=== PATIENT | male | born 1985 | race Caucasian/White ===

== ENCOUNTER 2016-02-23 13:08 | Inpatient (IN) | payer OTHER ==
[2016-02-23 14:09] LABS: Urine Bilirubin Negative (Negative); Urine Glucose Negative (Negative); Urine Nitrite Negative (Negative)
[2016-02-23] MEDS ORDERED: Haloperidol TAB* 10 MG PO ONE (14:12)
[2016-02-23] MEDS ORDERED: Al Hydrox/Mg Hydrox/Simet LIQ* 30 ML UDC PO ONE (14:12)
[2016-02-23 14:18] LABS: Benzodiazepine Urine Screen Presumptive Positive (None Detect)
[2016-02-23] MEDS ORDERED: Haloperidol TAB* 5 MG ONE (14:18)
[2016-02-23 16:16] LABS: Comments Flag Yes; Hematocrit 43 % (42-52); Hemoglobin 14.5 g/dl (14.0-18.0); Mean Corpuscular HGB Conc 34 g/dl (31-36); Mean Corpuscular Hemoglobin 29 pg (27-31); Mean Corpuscular Volume 84 fL (80-94); Mean Platelet Volume 8 um3 (7.4-10.4); Red Blood Count 5.06 10^6/ul (4.0-5.4); Red Cell Distribution Width 13 % (10.5-15); White Blood Count 7.2 10^3/ul (3.5-10.8)
[2016-02-23 16:17] LABS: Add Diff/Slide Review? Slide Review Added
[2016-02-23 16:26] LABS: ALT 33 U/L (7-52); AST 21 U/L (13-39); Albumin 4.5 g/dL (3.2-5.2); Alkaline Phosphatase 60 U/L (34-104); Anion Gap 9 mmol/L (2-11); Blood Urea Nitrogen 9 mg/dL (6-24); CO2 Carbon Dioxide 23 mmol/L (22-32); Calcium 9.4 mg/dL (8.6-10.3); Chloride 105 mmol/L (101-111); EGFR African American 111.4 (>60); EGFR Non-African American 86.6 (>60); Globulin 2.7 g/dL (2-4); Glucose 136 mg/dL (70-100); Potassium 3.4 mmol/L (3.5-5.0); Sodium 137 mmol/L (133-145); Total Protein 7.2 g/dL (6.4-8.9)
[2016-02-23 17:19] LABS: Acetaminophen < 15 mcg/mL; Alcohol < 10 mg/dL (<10); Salicylate < 2.50 mg/dL (<30)
[2016-02-23 17:29] LABS: TSH (Thyroid Stimulating Horm) 1.99 mcIU/mL (0.34-5.60)
[2016-02-23] MEDS ORDERED: diPHENhydraMINE IV* 50 MG in NS 0.9% 50 ML* 50 ML IM ONE (17:49)
[2016-02-23] MEDS ORDERED: Haloperidol INJ IV/IM* 5 MG/ML AMP IM ONE (17:49)
[2016-02-23] MEDS ORDERED: LORazepam INJ* 2 MG/ML 1 ML VIAL IM ONE (17:49)
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
[2016-02-24] MEDS ORDERED: Nicotine Inhaler* 10 MG AMP ONE (01:27)
[2016-02-24] MEDS ORDERED: Mouth Piece, Nicotine* 1 EACH CARTRIDGE ONE ×2 (01:27→11:28)
[2016-02-24] MEDS ORDERED: Nicotine GUM* 2 MG ONE (02:53)
[2016-02-24] MEDS ORDERED: LORazepam TAB(*) 1 MG ONE (04:00)
[2016-02-24] MEDS ORDERED: Haloperidol TAB* 5 MG ONE (04:00)
[2016-02-24] MEDS ORDERED: Nicotine Inhaler* 10 MG AMP INH PRN (04:11)
[2016-02-24] MEDS ORDERED: LORazepam TAB(*) 1 MG PO PRN (04:13)
[2016-02-24] MEDS ORDERED: Haloperidol TAB* 5 MG PO PRN (04:14)
[2016-02-24] MEDS ORDERED: Mouth Piece, Nicotine* 1 EACH CARTRIDGE INH ONE (05:00)
[2016-02-24] MEDS: Vitamin THERAPEUTIC TAB PO SCH (09:22)
[2016-02-24] MEDS: Nicotine GUM* 2 MG PO PRN ×2 (10:07→19:44)
[2016-02-24] MEDS ORDERED: diPHENhydraMINE IV* 50 MG/ML 1 ml VIAL (BENADRYL) ONE (11:08)
[2016-02-24] MEDS ORDERED: diPHENhydraMINE PO* 50 MG PO ONE (19:15)
[2016-02-24] MEDS ORDERED: diPHENhydraMINE PO* 50 MG ONE (19:19)
[2016-02-24] MEDS ORDERED: OLANzapine TAB* 5 MG PO SCH (21:00)
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
[2016-02-25] MEDS: Acetaminophen TAB* 325 MG PO PRN (06:48)
[2016-02-25] MEDS: Vitamin THERAPEUTIC TAB PO SCH (08:53)
[2016-02-25] MEDS: Nicotine GUM* 2 MG PO PRN (09:14)
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
[2016-02-25] MEDS: Paliperidone TAB* 6 MG PO SCH (20:37)
[2016-02-26] MEDS: Acetaminophen TAB* 325 MG PO PRN ×2 (01:08→08:01)
[2016-02-26] MEDS: Nicotine GUM* 2 MG PO PRN (01:39)
[2016-02-26] MEDS: Vitamin THERAPEUTIC TAB PO SCH (08:01)
--- NOTE | 2016-02-26 11:41 | PN ---
[facility]HU: Group Therapy Note - Service Type Service Type: 70744 Group Psychotherapy - Cognitive Behavioral Group Therapy ( CBT):Patient presented in CBT programming as disorganized and disruptive in discussion and needed repeated redirection to attend to presented materials.
--- NOTE | 2016-02-26 15:36 | PN ---
Subjective - Subjective Service Type: 86876 Hosp care 25 min moderate complexity Subjective: The patient continues to be hyperverbal and intrusive at times, wanting to discuss other patients' treatment and telling me that he still intends to pursue an [employer] basketball career in the future despite the fact that he is short and obese. He is tolerating the initiation of paliperidone well and did appear to sleep better last night. The patient continues to complain of periumbilical abdominal pain and reports that he was scheduled to have a hernia surgery this week at the [facility] in [place]. Objective - Appearance Appearance: Obese Dysmorphic Features: No Hygiene: Normal Grooming: Well Kept - Behavior Psychomotor Activities: Abnormal-Increased Exhibits Abnormal Movement: No - Attitude and Relatedness Attitude and Relatedness: Psychotically Related Eye Contact: Good - Speech Quality: Pressured Latencies: Short Quantity: Copious - Mood Patient's Decription of Mood: "Great" - Affect Observed Affect: Expansive Affect Consistent with: Euphoria - Thought Process Patient's Thought Process: Tangential Thought Content: Yes Paranoid Ideation, No Passive Wish, No Suicidal Planning, No Homicidal Ideation - Sensorium Experiencing Hallucinations: No, Sensorium is Clear Type of Hallucinations: Visual: No, Auditory: No, Command: No - Level of Consciousness Level of Consciousness: Alert Orientation: Yes Intact, Yes Orientated to Time, Yes Orientated to Place, Yes Orientated to Person - Impulse Control Impulse Control: Impaired - Insight and Judgement Insight and Judgement: Poor - Group Participation Particating in Group Activities: Yes - Medication Management Medication Management Adherence: Yes Assessment - Assessment Merits Inpatient Hospitalization: For Immediate Safety, For Stabilization Inpatient DSM-IV Dx: Unspecified Psychotic DO Clinical Impression: 30 y.o. white male with a history of at least one prior psychotic break who was brought in to the hospital by the police due to paranoid, delusional and dangerous behavior in the community. He continues to present as manic and psychotic. Plan - Plan Treatment Plan: Name: IGNACIO POLANCO Birthdate: 1985 [id number] Continue paliperidone 6mg PO qhs. May opt for injectable Invega if patient consents. Await med effect. Also, we have consulted Surgery Department (Dr. Schwartz) who will evaluate the patient's abdominal complaints. Continued Medication Management: Start Medication Medications: Current Medications Acetaminophen (Tylenol Tab*) 650 mg PO Q4H PRN PRN Reason: PAIN or TEMP > 101 F Last Admin: 02/26/16 08:01 Dose: 650 mg Al Hydrox/Mg Hydrox/Simethicone (Maalox Plus*) 30 ml PO Q4H PRN PRN Reason: INDIGESTION Lorazepam (Ativan Tab(*)) 2 mg PO Q6H PRN PRN Reason: ANXIETY/AGITATION Multivitamins (Theragran Tab*) 1 tab PO DAILY [facility] Last Admin: 02/26/16 08:01 Dose: 1 tab Nicotine (Nicotine Inhaler*) 10 mg INH Q2H PRN PRN Reason: CRAVING Last Admin: 02/24/16 11:28 Dose: 10 mg Nicotine Polacrilex (Nicotine Gum*) 2 mg PO Q2H PRN PRN Reason: CRAVING Last Admin: 02/26/16 01:39 Dose: 2 mg Paliperidone (Invega Tab*) 6 mg PO BEDTIME [facility] Last Admin: 02/25/16 20:37 Dose: 6 mg - Discharge Plan Discharge Plan: Inpatient Hospitalization
[2016-02-26] MEDS: Paliperidone TAB* 6 MG PO SCH (20:21)
--- NOTE | 2016-02-26 22:43 | CONS ---
CONSULTATION REPORT: DATE OF CONSULT: 02/26/16 PROVIDER: SANDRA Camacho ATTENDING PHYSICIAN: Kem Schwartz MD REASON FOR CONSULTATION: Hernia to abdominal wall. HISTORY OF PRESENT ILLNESS: The patient is a 30-year-old male who is admitted to the Behavioral Services Unit for psychosis with paranoia. He tells me that he needs his hernia fixed because he is about to be drafted into the [employer]. 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 He otherwise has no associated discomfort or change in bowel or appetite. He recently ate dinner and had a good hearty meal. PAST MEDICAL HISTORY: Surgery for carpal tunnel, possible schizophrenia, a small hiatal hernia, and small fat-containing umbilical hernia just superior to the right of the umbilicus. PHYSICAL EXAMINATION: The patient is a generally well-appearing, somewhat overweight male, who appears his stated age, who is conversing normally. Vital Signs: Vitals from 02/25/16 - temperature 98.1, pulse 91, respiratory rate 16, O2 sat 99% on room air, and blood pressure 121/84. Abdomen: Soft, obese, non-distended. +BS throughout. Difficult to palpate small 3cm umbilical hernia to superior-right of umbilicus (10 O'clock). Appears to reduce when pt relaxes abdomen. Non-tender to palpation. No erythema or skin rashes/lesions. No masses or organomegaly but exam is somewhat limited due to body habitus. DIAGNOSTIC STUDIES/LAB DATA: Abdomen and pelvis CT scan findings as described in past medical history regarding small hiatal hernia and small fat-containing umbilical hernia, which was taken on 02/21/16 for abdominal pain. ASSESSMENT AND PLAN: The patient is a 30-year-old male who presents with periumbilical discomfort associated with lifting his hands about his head and bending over related to a fat-containing periumbilical hernia. We would recommend he have this repaired at some point in the future upon discharge. There is no evidence to suggest incarceration or strangulation. There is no bowel obstruction. This does not require urgent surgical intervention. I discussed with him the need for outpatient followup as supposed to going to the emergency room to address this problem. The patient can be referred to our Surgical Office or to somewhere closer to his house such as [facility] for repair of this periumbilical hernia. SANDRA CAMACHO CC: Bandar Del Castillo MD, psychiatrist; Dr. [facility] at [facility] [id number]/[facility] #: [id number] [facility]
[2016-02-27] MEDS: Vitamin THERAPEUTIC TAB PO SCH (08:50)
--- NOTE | 2016-02-27 11:20 | PN ---
MHU: Group Therapy Note - Service Type Service Type: 48623 Group Psychotherapy - Cognitive Behavioral Therapy (CBT): Kem remains extremely hyper verbal despite repeated attempts to re-direct. He repeated how "I'm an alpha male" and maintains that he will play in the [employer], despite not having played competitive basketball even in high school. He also continues to describe his interest in utilizing medical marijuana, and plans to quit his job because he "I've saved up $2,000" He presently is unable to accept efforts to engage in substantive clinical discussion, and remains a very disruptive influence on group dynamics.
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
[2016-02-27] MEDS: Paliperidone TAB* 9 MG PO SCH (20:09)
[2016-02-28] MEDS: Vitamin THERAPEUTIC TAB PO SCH (07:23)
[2016-02-28] MEDS: Acetaminophen TAB* 325 MG PO PRN ×2 (07:23→22:57)
[2016-02-28] MEDS ORDERED: Paliperidone SUSTENNA* 234 MG/1.5 ML IM ONE (14:53)
--- NOTE | 2016-02-28 14:59 | PN ---
Subjective - Subjective Service Type: 20314 Hosp care 25 min moderate complexity Subjective: Patient remains grandiose and still threatening towards a particular female staff. "I own this town. I could have her lumped the fuck up if I wanted to. It could have happened yesterday while she was walking out of the parking lot to her car. I wanna be in the [employer], I gotta be the [employer]!" Patient tolerating the oral paliperidone well and agrees to the injectable form of this. Objective - Appearance Appearance: Obese Dysmorphic Features: No Hygiene: Normal Grooming: Well Kept - Behavior Psychomotor Activities: Abnormal-Increased Exhibits Abnormal Movement: No - Attitude and Relatedness Attitude and Relatedness: Psychotically Related Eye Contact: Good - Speech Quality: Pressured Latencies: Short Quantity: Copious - Mood Patient's Decription of Mood: "Great" - Affect Observed Affect: Labile Affect Consistent with: Euphoria - Thought Process Patient's Thought Process: Tangential Thought Content: Yes Homicidal Ideation, Yes Paranoid Ideation, No Passive Wish, No Suicidal Planning - Sensorium Experiencing Hallucinations: No, Sensorium is Clear Type of Hallucinations: Visual: No, Auditory: No, Command: No - Level of Consciousness Level of Consciousness: Agitated Orientation: Yes Intact, Yes Orientated to Time, Yes Orientated to Place, Yes Orientated to Person - Impulse Control Impulse Control: Poor - Insight and Judgement Insight and Judgement: Impaired - Group Participation Particating in Group Activities: Yes - Medication Management Medication Management Adherence: Yes Assessment - Assessment Merits Inpatient Hospitalization: For Immediate Safety, For Stabilization Inpatient DSM-IV Dx: Unspecified Psychotic DO Clinical Impression: 30 y.o. white male with a history of at least one prior psychotic break who was brought in to the hospital by the police due to paranoid, delusional and dangerous behavior in the community. He continues to present as manic and psychotic. Plan - Plan Treatment Plan: Name: IGNACIO POLANCO Birthdate: 1985 [id number] Start paliperidone Sustenna 234mg IM q4wks and keep on oral as well. Patient remains too psychotic for discharge. Continued Medication Management: Start Medication Medications: Current Medications Acetaminophen (Tylenol Tab*) 650 mg PO Q4H PRN PRN Reason: PAIN or TEMP > 101 F Last Admin: 02/28/16 07:23 Dose: 650 mg Al Hydrox/Mg Hydrox/Simethicone (Maalox Plus*) 30 ml PO Q4H PRN PRN Reason: INDIGESTION Lorazepam (Ativan Tab(*)) 2 mg PO Q6H PRN PRN Reason: ANXIETY/AGITATION Multivitamins (Theragran Tab*) 1 tab PO DAILY [facility] Last Admin: 02/28/16 07:23 Dose: 1 tab Nicotine (Nicotine Inhaler*) 10 mg INH Q2H PRN PRN Reason: CRAVING Last Admin: 02/24/16 11:28 Dose: 10 mg Nicotine Polacrilex (Nicotine Gum*) 2 mg PO Q2H PRN PRN Reason: CRAVING Last Admin: 02/26/16 01:39 Dose: 2 mg Paliperidone (Invega Tab*) 9 mg PO BEDTIME [facility] Last Admin: 02/27/16 20:09 Dose: 9 mg - Discharge Plan Discharge Plan: Inpatient Hospitalization
[2016-02-28] MEDS: Paliperidone TAB* 9 MG PO SCH (20:23)
[2016-02-29] MEDS: Vitamin THERAPEUTIC TAB PO SCH (08:46)
[2016-02-29] MEDS: Acetaminophen TAB* 325 MG PO PRN (08:46)
--- NOTE | 2016-02-29 12:05 | PN ---
Subjective - Subjective Service Type: 27027 Hosp care 15 min low complexity Subjective: Patient tolerated his loading dose of Invega Sustenna yesterday afternoon and later received a prn ativan for insomnia. He remains grandiose, talking about joining the [employer] and fixating negative attention on a female staff member with whom he has a negative rapport. Objective - Appearance Appearance: Obese Dysmorphic Features: No Hygiene: Normal Grooming: Fairly Well Kept - Behavior Psychomotor Activities: Abnormal-Increased Exhibits Abnormal Movement: No - Attitude and Relatedness Attitude and Relatedness: Psychotically Related Eye Contact: Good - Speech Quality: Pressured Latencies: Short Quantity: Copious - Mood Patient's Decription of Mood: "Great" - Affect Observed Affect: Expansive Affect Consistent with: Euphoria - Thought Process Patient's Thought Process: Tangential Thought Content: Yes Paranoid Ideation, No Passive Wish, No Suicidal Planning, No Homicidal Ideation - Sensorium Experiencing Hallucinations: No, Sensorium is Clear Type of Hallucinations: Visual: No, Auditory: No, Command: No - Level of Consciousness Level of Consciousness: Alert Orientation: Yes Intact, Yes Orientated to Time, Yes Orientated to Place, Yes Orientated to Person - Impulse Control Impulse Control: Poor - Insight and Judgement Insight and Judgement: Impaired - Group Participation Particating in Group Activities: Yes - Medication Management Medication Management Adherence: Yes Assessment - Assessment Merits Inpatient Hospitalization: For Immediate Safety, For Stabilization Inpatient DSM-IV Dx: Unspecified Psychotic DO Clinical Impression: 30 y.o. white male with a history of at least one prior psychotic break who was brought in to the hospital by the police due to paranoid, delusional and dangerous behavior in the community. He continues to present as manic and psychotic. Plan - Plan Treatment Plan: Name: IGNACIO POLANCO Birthdate: 1985 [id number] Patient is now on paliperidone Sustenna 234mg IM q4wks as well as oral Invega 9mg daily. Patient remains too psychotic for discharge. Continued Medication Management: Start Medication Medications: Current Medications Acetaminophen (Tylenol Tab*) 650 mg PO Q4H PRN PRN Reason: PAIN or TEMP > 101 F Last Admin: 02/29/16 08:46 Dose: 650 mg Al Hydrox/Mg Hydrox/Simethicone (Maalox Plus*) 30 ml PO Q4H PRN PRN Reason: INDIGESTION Lorazepam (Ativan Tab(*)) 2 mg PO Q6H PRN PRN Reason: ANXIETY/AGITATION Last Admin: 02/28/16 22:57 Dose: 2 mg Multivitamins (Theragran Tab*) 1 tab PO DAILY [facility] Last Admin: 02/29/16 08:46 Dose: 1 tab Nicotine (Nicotine Inhaler*) 10 mg INH Q2H PRN PRN Reason: CRAVING Last Admin: 02/24/16 11:28 Dose: 10 mg Nicotine Polacrilex (Nicotine Gum*) 2 mg PO Q2H PRN PRN Reason: CRAVING Last Admin: 02/26/16 01:39 Dose: 2 mg Paliperidone (Invega Tab*) 9 mg PO BEDTIME [facility] Last Admin: 02/28/16 20:23 Dose: 9 mg - Discharge Plan Discharge Plan: Inpatient Hospitalization
[2016-02-29] MEDS: Paliperidone TAB* 9 MG PO SCH (21:55)
[2016-02-29] MEDS: Al Hydrox/Mg Hydrox/Simet LIQ* 30 ML UDC PO PRN (23:35)
[2016-03-01] MEDS: Al Hydrox/Mg Hydrox/Simet LIQ* 30 ML UDC PO PRN ×3 (05:57→21:17)
[2016-03-01] MEDS: Nicotine GUM* 2 MG PO PRN (07:35)
[2016-03-01] MEDS: Vitamin THERAPEUTIC TAB PO SCH (07:35)
[2016-03-01] MEDS: Paliperidone TAB* 9 MG PO SCH (19:44)
[2016-03-01] MEDS ORDERED: Ibuprofen TAB* 800 MG PO ONE (22:00)
[2016-03-01] MEDS: diPHENhydraMINE PO* 50 MG PO SCH (22:16)
[2016-03-02] MEDS: Vitamin THERAPEUTIC TAB PO SCH (08:44)
[2016-03-02] MEDS: Acetaminophen TAB* 325 MG PO PRN ×2 (08:45→17:50)
[2016-03-02] MEDS: Ibuprofen TAB* 800 MG PO PRN ×2 (15:13→22:05)
[2016-03-02] MEDS: Paliperidone TAB* 9 MG PO SCH (19:16)
[2016-03-02] MEDS: Al Hydrox/Mg Hydrox/Simet LIQ* 30 ML UDC PO PRN (19:16)
[2016-03-02] MEDS: diPHENhydraMINE PO* 50 MG PO SCH (22:05)
[2016-03-03 07:54] VITALS: BP 135/81
[2016-03-03] MEDS: Ibuprofen TAB* 800 MG PO PRN (08:31)
[2016-03-03] MEDS: Vitamin THERAPEUTIC TAB PO SCH (08:32)
[2016-03-03] MEDS: Al Hydrox/Mg Hydrox/Simet LIQ* 30 ML UDC PO PRN (10:38)
[2016-03-03] MEDS ORDERED: Paliperidone SUSTENNA* 156 MG/1 ML IM ONE (11:38)
[2016-03-03] MEDS: Acetaminophen TAB* 325 MG PO PRN (11:43)
--- NOTE | 2016-03-03 12:01 | PN ---
MHU: Group Therapy Note - Service Type Service Type: [id number] Group Psychotherapy - Cognitive Behavioral Group Therapy ( CBT):Patient presented in CBT programming as disorganized and disruptive in discussion and needed repeated redirection to attend to presented materials.
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
== END 2016-03-03 15:35 | disposition home or self-care (01) | DRG 751 ==
LOC: ED 13:08 → BSU 22:25
PROVIDERS: ADMIT Psychiatry & Neurology Psychiatry; ATTEND Psychiatry & Neurology Psychiatry
DX: F29 Unspecified psychosis not due to a substance or known physiological condition (principal); F20.9 Schizophrenia, unspecified; E66.9 Obesity, unspecified; F12.10 Cannabis abuse, uncomplicated; K44.9 Diaphragmatic hernia without obstruction or gangrene; K43.9 Ventral hernia without obstruction or gangrene; Z68.34 Body mass index [BMI] 34.0-34.9, adult; Z81.8 Family history of other mental and behavioral disorders; Z81.1 Family history of alcohol abuse and dependence
CPT/HCPCS: 36415; 80053; 80301; 80320; 80329; 81003; 84443; 85025; 90853; 99222; 99231; 99232; 99238; 99406; A9270-GY; G0479; G0480; J1200; J1630; J2060; J2426

== ENCOUNTER 2016-03-06 10:53 | Emergency (ER) | payer OTHER ==
[2016-03-06 12:28] VITALS: BP 147/92
--- NOTE | 2016-03-06 12:46 | UC ---
Back Pain HPI - HPI Summary HPI Summary: The patient comes in today for: 1. Lower back pain: Onset: three days ago. Palliative/provocative: Laying down on his side helps. Quality: Dull, and sometimes sharp Region: Lower back pain right and left. Severity: 8/10 Time: Constant. Associated symptoms: Home Rx: Ibuprofen did not help. Rum helped (4 shots total) Fevers: None. Unexpected weight loss: None Previous back pain: Lower back pain about 10 years ago. Bowel/bladder: None. Injury: He was in the behavior arias at [facility] [place] for 1.5 weeks. He was "working out" (riding the exercise bicycle, manual treadmill, 2 miles a day of walking the halls a lot and the manual Previous disease: None except as above. He would like a referral to a surgeon to have his umbilical hernia (which is not causing him any problems at this time) to have it repaired. 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 - Allergies/Home Medications Allergies/Adverse Reactions: Allergies Allergy/AdvReac Type Severity Reaction Status Date / Time No Known Allergies Allergy Verified 03/06/16 12:26 Home Medications: Home Medications Ibuprofen TAB* [Motrin TAB* 600 MG] 800 mg PO ONCE PRN 03/06/16 [History Confirmed 03/06/16] PMH/Surg Hx/FS Hx/Imm Hx Previously Healthy: No - He states that he is on Invega for "poor sleep." He states that he has OCD Endocrine History Of: Denies: Diabetes, Thyroid Disease, Hyperthyroidism, Hypothyroidism, Dyslipidemia Cardiovascular History Of: Denies: Cardiac Disorders, Hypertension, Pacemaker/ICD, Myocardial Infarction , Congestive Heart Failure, Atrial Fibrillation, Deep Vein Thrombosis, Bleeding Disorders Respiratory History Of: Reports: Asthma - as a child Denies: COPD, Bronchitis, Pneumonia, Pulmonary Embolism GI/ History Of: Reports: Gastroesophageal Reflux Denies: Ulcer, Gastrointestinal Bleed, Gall Bladder Disease, Kidney Stones, Diverticulitis, Renal Disease, Urosepsis Neurological History Of: Reports: TIA - He takes OTC Prilosec as needed. Denies: CVA, Dementia, Seizures, Migraine Psychological History Of: Reports: Anxiety Denies: Depression, Bipolar Disorder, Schizophrenia, Post Traumatic Stress Disorder Cancer History Of: Denies: Lung Cancer, Colorectal Cancer, Breast Cancer, Prostate Cancer, Cervical Cancer Other History Of: Negative For: HIV, Hepatitis B, Hepatitis C, Anticoagulant Therapy - Surgical History Surgical History: Yes Surgery Procedure, Year, and Place: RIGHT EYE SURGERY 2001, LEFT CARPAL TUNNEL 2012 - Family History Known Family History: Negative: Cardiac Disease, Hypertension, Diabetes Family History: denies cardio-vascular issues in family lineage - Social History Lives: With Family Alcohol Use: Occasionally Substance Use Type: Marijuana Substance Use Comment - Amount & Last Used: states he smokes marijuana daily and could not describe pattern Smoking Status (MU): Light Every Day Tobacco Smoker Type: Cigars Amount Used/How Often: states he smokes qd (describes using a blunt) but could not define exactly Have You Smoked in the Last Year: Yes - Immunization History Most Recent Influenza Vaccination: states he has received in the past, unsure exactly when but not this season Most Recent Tetanus Shot: UTD Most Recent Pneumonia Vaccination: patient states he has received during career Review of Systems Constitutional: Negative Skin: Negative Eyes: Negative ENT: Negative Respiratory: Negative Cardiovascular: Negative Gastrointestinal: Negative Genitourinary: Negative All Other Systems Reviewed And Are Negative: Yes Physical Exam Triage Information Reviewed: Yes Completion Of Physical Exam Limited Due To: Other - Patient has a mask facies. He is conversant, but has no spontaneous routine animation or facial expressions. Appearance: No Pain Distress, Well-Nourished Vital Signs: Initial Vital Signs Temp 97.3 F 03/06/16 12:21 Pulse 128 03/06/16 12:21 Resp 18 03/06/16 12:21 BP 147/92 03/06/16 12:21 Pulse Ox 98 03/06/16 12:21 Vital Signs Reviewed: Yes Eyes: Positive: Conjunctiva Clear. Negative: Discharge ENT: Positive: Hearing grossly normal. Negative: Pharyngeal erythema, Nasal congestion, Nasal drainage, TM bulging, TM dull, TM red, Tonsillar swelling, Tonsillar exudate Dental: Negative: Gross Decay/Caries @, Dental Fracture @ Neck: Positive: Supple, Nontender, No Lymphadenopathy. Negative: Nuchal Rigidity Respiratory: Positive: Chest non-tender, Lungs clear, No respiratory distress, No accessory muscle use Cardiovascular: Positive: RRR, No Murmur Abdomen Description: Positive: Nontender, No Organomegaly, Soft, Other: - No marked tenderness or swelling or redness of the umbilicus.. Negative: CVA Tenderness (R), CVA Tenderness (L), Distended, Guarding Musculoskeletal: Positive: ROM Intact, No Edema, Other: - Back: He has tenderness to palpation of the right and left lumbar paraspinous musculature. He has no CVA tenderness bilaterally. There is also tenderness to palpation of the superior right and left sacrum. He has no SLR and DTR are 2+/2 x 2. Range of motion is good for flexion, extension, and lateral rotation and flexion. Neurological: Positive: Alert, Muscle Tone Normal Psychological: Positive: Normal Response To Family, Age Appropriate Behavior, Consolable Skin: Negative: rashes, breakdown Back Pain Course/Dx - Differential Dx/Diagnosis Differential Diagnosis/HQI/PQRI: Arthritis, Strain, Sprain Provider Diagnoses: Lower back pain (rigth and left) Discharge - Discharge Plan Condition: Stable Disposition: HOME Patient Education Materials: Low Back Strain (ED), Lower Back Exercises (ED) Referrals: [facility] [place] PHYSICIAN REFERRAL [Outside] Kem Schwartz MD [Medical Doctor] - As Soon As Possible (Please contact the surgeon for evaluation and treatment of your umbilical hernia.) Non Staff,Doctor [Primary Care Provider] - 1 Week (Please see your primary care provider in about three days to see how well you are doing. If you don't have a primary care provider, please contact the physician referral service. If you can't get in timely, please you may come back to see us until you can. If you get worse, please be seen sooner by us or the ER.)
== END 2016-03-06 13:43 | disposition home or self-care (01) ==
LOC: UCEAST 10:53
DX: M54.5 Low back pain (principal); F12.90 Cannabis use, unspecified, uncomplicated; F17.210 Nicotine dependence, cigarettes, uncomplicated
CPT/HCPCS: 99212; G0463

== ENCOUNTER 2016-03-07 17:57 | Emergency (ER) | payer OTHER ==
[2016-03-07 18:15] VITALS: BP 126/79
[2016-03-07] MEDS ORDERED: NS 0.9% 1000 ML* 2,000 ML IV ONE (19:38)
[2016-03-07 20:14] LABS: Hematocrit 41 % (42-52); Hemoglobin 13.6 g/dl (14.0-18.0); Mean Corpuscular HGB Conc 34 g/dl (31-36); Mean Corpuscular Hemoglobin 28 pg (27-31); Mean Corpuscular Volume 84 fL (80-94); Mean Platelet Volume 8 um3 (7.4-10.4); Red Cell Distribution Width 13 % (10.5-15); White Blood Count 7.5 10^3/ul (3.5-10.8)
[2016-03-07 20:29] LABS: Albumin 4.2 g/dL (3.2-5.2); Calcium 9.2 mg/dL (8.6-10.3); EGFR African American 122.6 (>60); EGFR Non-African American 95.3 (>60); Globulin 2.9 g/dL (2-4); Potassium 4.1 mmol/L (3.5-5.0); Total Bilirubin 0.6 mg/dL (0.2-1.0); Total Protein 7.1 g/dL (6.4-8.9)
[2016-03-07] MEDS ORDERED: Ketorolac INJ* 30 MG/ML 1 ML VIAL IV ONE (21:06)
[2016-03-07 21:13] LABS: TSH (Thyroid Stimulating Horm) 5.13 mcIU/mL (0.34-5.60)
--- NOTE | 2016-03-07 21:20 | ED ---
Farzaneh Duggan Erika, scribed for Elvis Orlando MD on 03/07/16 at 2022 . Back Pain - HPI Summary HPI Summary: Patient is a 30-year-old male presenting to the ED with a CC of lower back pain starting 03/03/2015. Patient reports that pain is in the bilateral lower flanks , and radiates down through the buttocks to the posterior thighs. Pt reports he has been exercising and states he may be sore from exercising. He describes the pain as muscle tightness, soreness, and stiffness that is aggravated by movement. Associated symptoms include diaphoresis and numbness in the bilateral hands. Pt also reports neck pain unchanged from baseline. He denies incontinence. Pt states he was seen at [facility] yesterday and given naproxen and baclofen, and that pain has still been worsening. Pt reports he had his monthly injection of Invega on 03/02 with a booster on 03/03, and states he has been slurring his words since then. Hx umbilical hernia - denies abdominal pain today. Hx carpal tunnel. - History of Current Complaint Chief Complaint: EDBackInjuryPain Stated Complaint: BACK PAIN Time Seen by Provider: 03/07/16 18:08 Hx Obtained From: Patient Onset/Duration: Gradual Onset, Lasting Days, Worse Since Timing: Constant Back Pain Location: Is Discrete @ - lower bilateral back, Radiates To - buttocks , posterior thighs bilaterally Severity Currently: Moderate Pain Intensity: 8 Pain Scale Used: 0-10 Numeric Character: Stiffness Aggravating Symptom(s): Movement Alleviating Symptom(s): Nothing Associated Signs And Symptoms: Positive: Numbness - in hands - Allergies/Home Medications Allergies/Adverse Reactions: Allergies Allergy/AdvReac Type Severity Reaction Status Date / Time No Known Allergies Allergy Verified 03/06/16 12:26 PMH/Surg Hx/FS Hx/Imm Hx Endocrine/Hematology History: Denies: Hx Anticoagulant Therapy, Hx Diabetes, Hx Thyroid Disease Cardiovascular History: Denies: Hx Congestive Heart Failure, Hx Deep Vein Thrombosis, Hx Hypertension , Hx Myocardial Infarction, Hx Pacemaker/ICD Respiratory History: Reports: Hx Asthma - as a child Denies: Hx Chronic Obstructive Pulmonary Disease (COPD), Hx Lung Cancer, Hx Pneumonia, Hx Pulmonary Embolism GI History: Reports: Hx Hiatal Hernia, Hx Irritable Bowel Denies: Hx Gall Bladder Disease, Hx Gastrointestinal Bleed, Hx Ulcer, Hx Urosepsis History: Denies: Hx Kidney Stones, Hx Renal Disease Neurological History: Reports: Hx Transient Ischemic Attacks (TIA) - He takes OTC Prilosec as needed., Other Neuro Impairments/Disorders - concussions Denies: Hx Dementia, Hx Migraine, Hx Seizures Psychiatric History: Reports: Hx Anxiety, Hx Inpatient Treatment, Hx Substance Abuse Denies: Hx Eating Disorder, Hx Depression, Hx Schizophrenia, Hx Bipolar Disorder, Hx of Violent Episodes Against Others - Surgical History Surgery Procedure, Year, and Place: RIGHT EYE SURGERY 2001, LEFT CARPAL TUNNEL 2013 Infectious Disease History: No Infectious Disease History: Denies: Traveled Outside the [place] in Last 30 Days - Family History Known Family History: Negative: Cardiac Disease, Hypertension, Diabetes - Social History Lives: With Family Alcohol Use: Occasionally Hx Substance Use: Yes Substance Use Type: Reports: Marijuana Substance Use Comment - Amount & Last Used: states he smokes marijuana daily and could not describe pattern Hx Tobacco Use: Yes Smoking Status (MU): Light Every Day Tobacco Smoker Type: Cigars Have You Smoked in the Last Year: Yes Review of Systems Positive: Skin Diaphoresis Negative: incontinence Musculoskeletal: Other - Neck pain unchanged from baseline Positive: Myalgia - back pain, buttocks, thighs Positive: Numbness - bilateral hands, Slurred Speech - since Invega injection All Other Systems Reviewed And Are Negative: Yes Physical Exam Triage Information Reviewed: Yes Vital Signs On Initial Exam: Initial Vitals Temp Pulse Resp BP Pulse Ox 99.1 F 106 18 126/79 96 03/07/16 18:05 03/07/16 18:05 03/07/16 18:05 03/07/16 18:05 03/07/16 18:05 Vital Signs Reviewed: Yes Appearance: Positive: Well-Appearing, No Pain Distress Skin: Positive: Warm, Skin Color Reflects Adequate Perfusion, Dry Head/Face: Positive: Normal Head/Face Inspection Eyes: Positive: EOMI, ANKITA ENT: Positive: Normal ENT inspection Neck: Positive: Supple, Nontender Respiratory/Lung Sounds: Positive: Clear to Auscultation, Breath Sounds Present Cardiovascular: Positive: Tachycardia - at 106 bpm Abdomen Description: Positive: Nontender, Soft Bowel Sounds: Positive: Present Musculoskeletal: Positive: Strength/ROM Intact - but pain with ROM, Other - Tender lower lumbar Neurological: Positive: Normal, Sensory/Motor Intact, Alert, Oriented to Person Place, Time, Other - No neurological deficits Psychiatric: Positive: Affect/Mood Appropriate Diagnostics - Vital Signs Vital Signs Temp Pulse Resp BP Pulse Ox 03/07/16 18:05 99.1 F 106 18 126/79 96 - Laboratory Lab Results: Lab Results 03/07/16 03/07/16 03/07/16 Range/Units 19:55 19:55 19:55 WBC 7.5 (3.5-10.8) 10^3/ul RBC 4.80 (4.0-5.4) 10^6/ul Hgb 13.6 L (14.0-18.0) g/dl Hct 41 L (42-52) % MCV 84 (80-94) fL MCH 28 (27-31) pg MCHC 34 (31-36) g/dl RDW 13 (10.5-15) % Plt Count 222 (150-450) 10^3/ul MPV 8 (7.4-10.4) um3 Neut % (Auto) 64.8 (38-83) % Lymph % (Auto) 26.8 (25-47) % Fisher % (Auto) 7.0 (1-9) % Eos % (Auto) 0.9 (0-6) % Baso % (Auto) 0.5 (0-2) % Absolute Neuts (auto) 4.8 (1.5-7.7) 10^3/ul Absolute Lymphs (auto) 2.0 (1.0-4.8) 10^3/ul Absolute Monos (auto) 0.5 (0-0.8) 10^3/ul Absolute Eos (auto) 0.1 (0-0.6) 10^3/ul Absolute Basos (auto) 0 (0-0.2) 10^3/ul Absolute Nucleated RBC 0 10^3/ul Nucleated RBC % 0 INR (Anticoag Therapy) 0.86 L (0.89-1.11) APTT 31.0 (26.0-36.3) seconds Sodium 138 (133-145) mmol/L Potassium 4.1 (3.5-5.0) mmol/L Chloride 106 (101-111) mmol/L Carbon Dioxide 25 (22-32) mmol/L Anion Gap 7 (2-11) mmol/L BUN 12 (6-24) mg/dL Creatinine 0.92 (0.67-1.17) mg/dL Est GFR ( Amer) 122.6 (>60) Est GFR (Non-Af Amer) 95.3 (>60) BUN/Creatinine Ratio 13.0 (8-20) Glucose 94 (70-100) mg/dL Lactic Acid (0.5-2.0) mmol/L Calcium 9.2 (8.6-10.3) mg/dL Total Bilirubin 0.60 (0.2-1.0) mg/dL AST 52 H (13-39) U/L ALT 122 H (7-52) U/L Alkaline Phosphatase 79 (34-104) U/L Total Creatine Kinase 397 H (10-223) U/L C-Reactive Protein 12.00 H (< 5.00) mg/L Total Protein 7.1 (6.4-8.9) g/dL Albumin 4.2 (3.2-5.2) g/dL Globulin 2.9 (2-4) g/dL Albumin/Globulin Ratio 1.4 (1-3) TSH 5.13 (0.34-5.60) mcIU/mL 03/07/16 Range/Units 19:55 WBC (3.5-10.8) 10^3/ul RBC (4.0-5.4) 10^6/ul Hgb (14.0-18.0) g/dl Hct (42-52) % MCV (80-94) fL MCH (27-31) pg MCHC (31-36) g/dl RDW (10.5-15) % Plt Count (150-450) 10^3/ul MPV (7.4-10.4) um3 Neut % (Auto) (38-83) % Lymph % (Auto) (25-47) % Fisher % (Auto) (1-9) % Eos % (Auto) (0-6) % Baso % (Auto) (0-2) % Absolute Neuts (auto) (1.5-7.7) 10^3/ul Absolute Lymphs (auto) (1.0-4.8) 10^3/ul Absolute Monos (auto) (0-0.8) 10^3/ul Absolute Eos (auto) (0-0.6) 10^3/ul Absolute Basos (auto) (0-0.2) 10^3/ul Absolute Nucleated RBC 10^3/ul Nucleated RBC % INR (Anticoag Therapy) (0.89-1.11) APTT (26.0-36.3) seconds Sodium (133-145) mmol/L Potassium (3.5-5.0) mmol/L Chloride (101-111) mmol/L Carbon Dioxide (22-32) mmol/L Anion Gap (2-11) mmol/L BUN (6-24) mg/dL Creatinine (0.67-1.17) mg/dL Est GFR ( Amer) (>60) Est GFR (Non-Af Amer) (>60) BUN/Creatinine Ratio (8-20) Glucose (70-100) mg/dL Lactic Acid 1.6 (0.5-2.0) mmol/L Calcium (8.6-10.3) mg/dL Total Bilirubin (0.2-1.0) mg/dL AST (13-39) U/L ALT (7-52) U/L Alkaline Phosphatase (34-104) U/L Total Creatine Kinase (10-223) U/L C-Reactive Protein (< 5.00) mg/L Total Protein (6.4-8.9) g/dL Albumin (3.2-5.2) g/dL Globulin (2-4) g/dL Albumin/Globulin Ratio (1-3) TSH (0.34-5.60) mcIU/mL Result Diagrams: 03/07/16 19:55 03/07/16 19:55 Lab Statement: Any lab studies that have been ordered have been reviewed, and results considered in the medical decision making process. Back Pain Course/Dx - Course Assessment/Plan: WELL IN ED. DISCUSSED RESULTS WITH PATIENT/FAMILY. PAIN PROBALLY SECONDARY TO INVEGA AND WORKING OUT. PATIENT WILL DRINK PLENTY OF WATER AND USE IBUPROFEN AND BACLOFEN FOR PAIN. DISCHARGE HOME STABLE. - Diagnoses Provider Diagnoses: Myalgia, Low back pain, Elevated creatine kinase Discharge - Discharge Plan Condition: Stable Disposition: HOME Patient Education Materials: Musculoskeletal Pain (ED), Acute Low Back Pain (ED ) Referrals: No Primary Care Phys,NOPCP [Primary Care Provider] - Additional Instructions: YOUR MUSCLE PAIN MAY BE DUE TO THE INVEGA AND WORKING OUT. DRINK PLENTY OF WATER. FOLLOW UP WITH YOUR DOCTOR. RETURN TO THE EMERGENCY DEPARTMENT FOR ANY WORSENING OF YOUR CONDITION OR QUESTIONS OR CONCERNS. The documentation as recorded by the Farzaneh meraz Erika accurately reflects the service I personally performed and the decisions made by me, Elvis Orlando MD.
== END 2016-03-07 21:48 | disposition home or self-care (01) ==
LOC: ED 17:57
DX: M54.5 Low back pain (principal); M79.1 Myalgia; R79.89 Other specified abnormal findings of blood chemistry
CPT/HCPCS: 36415; 80053; 82550; 83605; 84443; 85025; 85610; 85730; 86140; 96360; 96374; 99282; J1885

== ENCOUNTER 2016-05-13 17:42 | Emergency (ER) | payer OTHER ==
[2016-05-13 18:51] VITALS: BP 128/82
--- NOTE | 2016-05-13 19:07 | UC ---
UC General HPI - HPI Summary HPI Summary: Patient has had cough, fever, muscle aches, sore throat and nausea for almost 2 days. - History of Current Complaint Chief Complaint: UCRespiratory Stated Complaint: SINUS CONGESTION, COUGH, AND FEVER Time Seen by Provider: 05/13/16 18:52 Hx Obtained From: Patient Onset/Duration: Sudden Onset, Lasting Days Timing: Constant Onset Severity: Moderate Current Severity: Moderate Associated Signs & Symptoms: Positive: Cough, Fever, Headache, Nausea - Allergy/Home Medications Allergies/Adverse Reactions: Allergies Allergy/AdvReac Type Severity Reaction Status Date / Time No Known Allergies Allergy Verified 03/06/16 12:26 PMH/Surg Hx/FS Hx/Imm Hx Previously Healthy: Yes Endocrine History Of: Denies: Diabetes, Thyroid Disease, Hyperthyroidism, Hypothyroidism, Dyslipidemia Cardiovascular History Of: Denies: Cardiac Disorders, Hypertension, Pacemaker/ICD, Myocardial Infarction , Congestive Heart Failure, Atrial Fibrillation, Deep Vein Thrombosis, Bleeding Disorders Respiratory History Of: Reports: Asthma - as a child Denies: COPD, Bronchitis, Pneumonia, Pulmonary Embolism GI/ History Of: Reports: Gastroesophageal Reflux Denies: Ulcer, Gastrointestinal Bleed, Gall Bladder Disease, Kidney Stones, Diverticulitis, Renal Disease, Urosepsis Neurological History Of: Reports: TIA - He takes OTC Prilosec as needed. Denies: CVA, Dementia, Seizures, Migraine Psychological History Of: Reports: Anxiety Denies: Depression, Bipolar Disorder, Schizophrenia, Post Traumatic Stress Disorder Cancer History Of: Denies: Lung Cancer, Colorectal Cancer, Breast Cancer, Prostate Cancer, Cervical Cancer Other History Of: Negative For: HIV, Hepatitis B, Hepatitis C, Anticoagulant Therapy - Surgical History Surgical History: Yes Surgery Procedure, Year, and Place: RIGHT EYE SURGERY 2001, LEFT CARPAL TUNNEL 2012 - Family History Known Family History: Negative: Cardiac Disease, Hypertension, Diabetes Family History: denies cardio-vascular issues in family lineage - Social History Alcohol Use: Occasionally Substance Use Type: Marijuana Substance Use Comment - Amount & Last Used: states he smokes marijuana daily and could not describe pattern Smoking Status (MU): Former Smoker Type: Cigars Amount Used/How Often: states he smokes qd (describes using a blunt) but could not define exactly Have You Smoked in the Last Year: Yes - Immunization History Most Recent Influenza Vaccination: states he has received in the past, unsure exactly when but not this season Most Recent Tetanus Shot: UTD Most Recent Pneumonia Vaccination: patient states he has received during career Review of Systems Constitutional: Fever, Fatigue Skin: Negative Eyes: Negative ENT: Sore Throat, Ear Ache, Nasal Discharge Respiratory: Cough Cardiovascular: Negative Gastrointestinal: Negative Genitourinary: Negative Motor: Negative Neurovascular: Decreased Sensation Musculoskeletal: Myalgia Neurological: Headache Psychological: Negative All Other Systems Reviewed And Are Negative: Yes Physical Exam Triage Information Reviewed: Yes Appearance: Well-Nourished, Ill-Appearing, Pain Distress Vital Signs: Initial Vital Signs Temp 98.2 F 05/13/16 18:47 Pulse 103 05/13/16 18:47 Resp 18 05/13/16 18:47 BP 128/82 05/13/16 18:47 Pulse Ox 96 05/13/16 18:47 Vital Signs Reviewed: Yes Eye Exam: Normal Eyes: Positive: Conjunctiva Clear ENT Exam: Normal ENT: Positive: Pharyngeal erythema, Nasal congestion, Nasal drainage, TM bulging , Muffled/hoarse voice Dental Exam: Normal Neck exam: Normal Neck: Positive: Supple, Nontender, No Lymphadenopathy Respiratory: Positive: Chest non-tender, No respiratory distress, No accessory muscle use, Wheezing, Inspiration, Other: - cough Cardiovascular Exam: Normal Cardiovascular: Positive: No Murmur, Pulses Normal, Tachycardia Abdominal Exam: Normal Abdomen Description: Positive: Nontender, No Organomegaly, Soft Bowel Sounds: Positive: Present Musculoskeletal Exam: Normal Musculoskeletal: Positive: Strength Intact Neurological Exam: Normal Neurological: Positive: Alert, Muscle Tone Normal Psychological Exam: Normal Skin Exam: Normal Course/Dx - Course Course Of Treatment: hx obtained, exam performed, meds reviewed, flu swab obtained and strep obtained, both negative. Treated for bronchitis - Differential Dx - Multi-Symptom Provider Diagnoses: bronchitis. fever. body aches Discharge - Discharge Plan Condition: Stable Disposition: HOME Patient Education Materials: Acute Bronchitis (ED) Additional Instructions: Take the medication as prescribed, increase fluid intake and get plenty of rest. Follow up with any worsening symptoms.
== END 2016-05-13 20:07 | disposition home or self-care (01) ==
LOC: UCEAST 17:42
DX: J40 Bronchitis, not specified as acute or chronic (principal); R50.9 Fever, unspecified; M79.1 Myalgia; F12.90 Cannabis use, unspecified, uncomplicated; F17.210 Nicotine dependence, cigarettes, uncomplicated
CPT/HCPCS: 87502; 87651; 99212; G0463